=== PATIENT | female | born 1960 | race African-American/Black ===

== ENCOUNTER → 2018-10-12 | Outpatient (CLI) | payer OTHER ==
--- NOTE | 2018-10-12 16:23 | KCIC ---
MR of the right hip HISTORY: Right hip pain. Surgery 2015. Pain and last few weeks. TECHNIQUE: Routine multiplanar sequences are obtained. FINDINGS: Several small nodular foci within the intertrochanteric femur, may be due to marrow heterogeneity but are likely benign. No aggressive bone lesion is seen. No acute fracture, femoral head osteonecrosis or acute marrow edema. There is a somewhat concave morphology of the anterior right femoral head neck junction seen on the axial images. This has a smooth appearance without signal abnormality and may just represent a normal appearance in this patient, versus other process such as old erosion or old fracture. No significant joint effusion. Very mild degenerative changes are noted. No evidence of labral tear. The gluteus minimus tendon demonstrates mild signal and ill-definition compatible with tendinosis, with mild surrounding edema/fluid. Associated partial tearing. Gluteus medius tendon is intact. Hamstring tendon intact. Iliopsoas tendon intact. Rectus femoris tendon intact. No acute muscle abnormality. Large [id number] coronal survey sequence demonstrates no acute abnormality at the contralateral hip. IMPRESSION: 1. 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 Partial tearing but no high-grade rupture. 2. There is a mild concave morphology of the anterior right femoral head and neck junction. This may just be normal appearance in this patient. Old fracture or erosion could also be considered but this appears inactive at this time. Clinical significance is doubtful. Electronically signed by: Refugio Coates MD (10/12/2018 4:21 PM) [facility] [place]
== END | disposition home or self-care (01) ==
LOC: KCIC MRI 14:51
PROVIDERS: ATTEND Registered Nurse
DX: S76.311A Strain of muscle, fascia and tendon of the posterior muscle group at thigh level, right thigh, initial encounter (principal); X58.XXXA Exposure to other specified factors, initial encounter; Y93.89 Activity, other specified; Y92.89 Other specified places as the place of occurrence of the external cause; Y99.8 Other external cause status
CPT/HCPCS: 73721

== ENCOUNTER → 2018-12-07 | Outpatient (CLI) | payer OTHER ==
[~2018-12-07] MED LIST: BUPIVACAINE MPF 0.5% 10 ML VIAL for KCIC. IM ONE; ESTR0.3T PO; IOHEXOL 300 MG/ML 50 ML VIAL. INT ART ONE; LIDOCAINE 1% Multi-Dose 20 ML VIAL. ID ONE; PANT40TA77 PO; TRAZ-118 PO; methylPREDNISolone ACETATE 40 MG/ML VIAL. INT ART ONE
--- NOTE | 2018-12-07 16:30 | KCIC ---
PROCEDURE Therapeutic right and left hip injection using fluoroscopic guidance. HISTORY Bilateral hip pain. TECHNIQUE The procedure was explained to the patient as were potential risks, including infection, bleeding or allergic reaction. All questions were answered. Informed written and verbal consent was obtained. The right hip was prepped and draped in the usual sterile manner. Following administration of local anesthetic, a 22-gauge spinal needle was advanced into the hip joint without difficulty, with care taken to avoid the vascular structures. Stylet was removed and following negative aspiration, a mixture of 4 cc Omnipaque-300, 2 cc (80 mg) Depo-Medrol, 4 cc 0.5% bupivacaine and 4 cc 1% lidocaine were injected without difficulty. Fluoroscopy demonstrates uniform and satisfactory distribution of the injection through the hip. The needle was removed. There was good hemostasis at the injection site. The left hip was prepped and draped in the usual sterile manner. Following administration of local anesthetic, a 22-gauge spinal needle was advanced into the hip joint without difficulty, with care taken to avoid the vascular structures. Stylet was removed and following negative aspiration, a mixture of 4 cc Omnipaque-300, 2 cc (80 mg) Depo-Medrol, 4 cc 0.5% bupivacaine and 4 cc 1% lidocaine were injected without difficulty. Fluoroscopy demonstrates uniform and satisfactory distribution of the injection through the hip. The needle was removed. There was good hemostasis at the injection site. The patient left in stable condition without immediate complication. The patient was given postprocedural instructions, in the event of any unexpected complications. 2 spot images were obtained. FLUOROSCOPY TIME: Right hip 36 seconds, left hip 25 seconds Electronically signed by: Refugio Coates MD (12/07/2018 4:27 PM) [facility]
== END ==
LOC: KCIC 10:12
PROVIDERS: ATTEND Orthopaedic Surgery Sports Medicine
DX: M25.551 Pain in right hip (principal); M25.552 Pain in left hip
CPT/HCPCS: 20610; 77002; J1030; Q9967

== ENCOUNTER → 2019-10-23 | Outpatient (CLI) | payer OTHER ==
[~2019-10-23] MED LIST changes: -BUPIVACAINE MPF 0.5% 10 ML VIAL for KCIC. IM ONE; -IOHEXOL 300 MG/ML 50 ML VIAL. INT ART ONE; -LIDOCAINE 1% Multi-Dose 20 ML VIAL. ID ONE; -methylPREDNISolone ACETATE 40 MG/ML VIAL. INT ART ONE
--- NOTE | 2019-10-23 12:51 | KCIC ---
The MR of the left hip HISTORY: Left hip pain in recent weeks. Possible labrum injury. TECHNIQUE: Routine multiplanar sequences are obtained. FINDINGS: No evidence of acute fracture. No aggressive bone destruction. No evidence of femoral head osteonecrosis. No acute bone marrow edema. No significant joint effusion. Mild degenerative changes at the left hip. Subchondral marrow edema with cystic change at the anterior acetabulum is likely degenerative in nature. There is mild irregularity and signal within the anterior labrum, appears degenerative. No clear-cut acute labral tear or labral detachment is seen. No para labral cyst. Gluteus minimus and medius tendon attachments are intact. Hamstring tendon intact. Iliopsoas tendon intact. Rectus femoris tendon intact. No acute muscle pathology. No abnormal soft tissue fluid collection. Large [id number] coronal survey sequence demonstrates no acute findings in the [id number]. There may be some degenerative changes at the lumbosacral junction. IMPRESSION: 1. Mild anterior labral degeneration without clear-cut tear or detachment. 2. Mild DJD of the left hip. Electronically signed by: Refugio Coates MD (10/23/2019 12:47 PM) [place] [id number]
== END | disposition home or self-care (01) ==
LOC: KCIC MRI 09:44
PROVIDERS: ATTEND Physician Assistant
DX: M24.152 Other articular cartilage disorders, left hip (principal); S73.002A Unspecified subluxation of left hip, initial encounter; X58.XXXA Exposure to other specified factors, initial encounter; Y93.89 Activity, other specified; Y99.8 Other external cause status; Y92.89 Other specified places as the place of occurrence of the external cause; M16.12 Unilateral primary osteoarthritis, left hip
CPT/HCPCS: 73721